=== PATIENT | male | born 2000 | race Two or more races ===

== ENCOUNTER 2019-03-24 12:45 | Emergency (ER) | payer MEDICAID ==
[~2019-03-24] VITALS: Ht 170.2 cm; Wt 70.3 kg
[~2019-03-24 12:45] MED LIST: NORPTMEDS CO
[2019-03-24 12:55] VITALS: BP 126/76
[2019-03-24] MEDS ORDERED: Acetam/CODEINE 120mg/12mg per 5mL UD PO ONE (14:15)
== END 2019-03-24 14:51 | disposition home or self-care (01) ==
LOC: ER 12:51
DX: S62.326A Displaced fracture of shaft of fifth metacarpal bone, right hand, initial encounter for closed fracture (principal); W10.8XXA Fall (on) (from) other stairs and steps, initial encounter; Y93.01 Activity, walking, marching and hiking; Y92.89 Other specified places as the place of occurrence of the external cause; Y99.8 Other external cause status
CPT/HCPCS: 29125